=== PATIENT | male | born 1995 | race Caucasian/White ===

== ENCOUNTER 2024-02-08 09:12 | Emergency (ER) | payer SELFPAY ==
[2024-02-08 09:29] VITALS: BP 150/100
[2024-02-08 10:07] LABS: % Basophils 0.4 % (0-2); % Eosinophils 1.2 % (0-6); % Immature Granulocytes 0.6 % (0-0.5); % Neutrophils 78.8 % (42.2-75.2); Absolute Eosinophils 0.1 10^3/uL (0-0.7); Absolute Immature Granulocytes 0.1 10^3/uL (0-0.05); Absolute Lymphocytes 1.4 10^3/uL (1.2-3.4); Absolute Monocytes 0.4 10^3/uL (0.1-0.6); Absolute Neutrophils 7.4 10^3/uL (1.4-6.5); Hematocrit 47.5 % (39.0-52.0); Hemoglobin 16.2 g/dL (13.0-18.0); Mean Corp Hgb Conc. 34.1 g/dL (33.0-37.0); Mean Corpuscular Hgb 30.2 pg (27.0-31.0); Mean Corpuscular Volume 88.6 fL (80.0-94.0); Mean Platelet Volume 10.4 fL (7.4-10.4); Nucleated Red Blood Cells % 0 % (-); Platelet Count 186 10^3/uL (130-400); Red Blood Cell Count 5.36 10^6/uL (4.70-6.10); Red Cell Dist. Width 11.4 % (11.5-14.5); White Blood Cell Count 9.4 10^3/uL (4.8-10.8)
[2024-02-08 10:21] LABS: ALT (SGPT) 59 U/L (0-50); AST (SGOT) 39 U/L (17-59); Albumin 5.1 g/dl (3.5-5.0); Alkaline Phosphatase 55 U/L (38-126); Blood Urea Nitrogen 17 mg/dl (9-20); Calcium 9.7 mg/dl (8.4-10.2); Carbon Dioxide 25 mmol/L (22-30); Chloride 106 mmol/L (98-107); Glucose 116 mg/dl (70-99); Potassium 4.8 mmol/L (3.5-5.1); Sodium 143 mmol/L (135-145); Total Bilirubin 0.9 mg/dl (0.2-1.3); Total Protein 8.1 g/dl (6.3-8.2); eGFR > 60.00
[2024-02-08 11:08] VITALS: BP 149/92
--- NOTE | 2024-02-08 11:16 | ED.GENMED ---
History of Present Illness
General
Chief Complaint: Dizziness
Source: patient and family (Mother)
Exam Limitations: none
Time Seen by Provider: 02/08/24 11:04
Nursing documentation reviewed up to this point in time: agreed with
History of Present Illness
History of Present Illness:
28-year-old male presents emergency room complaining of photosensitivity, dizziness and weakness since Monday. He had a headache yesterday. He thinks it is related to a rabies vaccine he got on Monday.
Past History
Past History
ED Past Medical History: None
ED Past Surgical History: Other (Rhinoplasty)
Social History
Tobacco: Non-smoker
Alcohol: None
Drug: None
Living: with family
Employment: Student
Review of Systems
Review of Systems
Allergies reviewed?: Yes
All Other Systems: Not applicable
Constitutional: Reports no symptoms
EENT: Reports no symptoms
Respiratory: Reports no symptoms
Cardiac: Reports no symptoms
ABD/GI: Reports no symptoms
: Reports no symptoms
Musculoskeletal: Reports no symptoms
Skin: Reports no symptoms
Neurological: Reports dizzy and weakness
Endocrine: Reports no symptoms
Hematologic/Lymphatic: Reports no symptoms
Psychiatric: Reports no symptoms
Phy Exam
Physical Exam
Physical Exam:
Physical Exam
General: no apparent distress, not acutely ill
Neck: supple. no meningeal signs. normal posterior pharynx
Heart: s1/s2 regular rate and rhythm, no murmur. equal radial
pulses.
HEENT: Pupils equal round reactive to light, EOMI
Lungs: no acute respiratory distress. clear bilaterally
Abdomen: normal bowel sounds. not tender. no CVAT
Neuro: alert and oriented. no focal neurological deficits cranial nerves II through XII intact
Skin: no rash
Psychiatric: well kept. interactive and cooperative
Extremities: no edema. no calf tenderness. negative homans. good distal pulses
Course
Orders/Labs/Results
Orders:
Orders
02/08/24 09:47
CMP [Comprehensive Metabolic Panel] Urgent
Complete Blood Count/With Diff Urgent
02/08/24 11:14
IV Insert/Care/Rem.- Treatment PRN
0.9% Sodium Chloride 1000 ml [Nss] 1,000 ml IV BOLUS
Physical Therapy Consult [Pt Eval And Treat] Urgent
Treatment: vestibular eval and treat
Activity Level: Ambulate
02/08/24 12:25
Diphenhydramine [Benadryl] 25 mg IV NOW STA
Metoclopramide [Reglan] 10 mg IV NOW STA
02/08/24 13:41
Electrocardiogram (*1) Urgent
Reason for Study: Vertigo / Dizzy
EKG- Treatment ONCE
Abnormal Lab Results
02/08/24
09:47
RDW 11.4 L %
(11.5-14.5)
Abs Immat Gran (auto) 0.1 H 10^3/uL
(0-0.05)
Absolute Neuts (auto) 7.4 H 10^3/uL
(1.4-6.5)
Immature Gran % 0.6 H %
(0-0.5)
Neutrophils % 78.8 H %
(42.2-75.2)
Lymphocytes % 15.0 L %
(20.5-51.1)
Glucose 116 H mg/dl
(70-99)
ALT 59 H U/L
(0-50)
Albumin 5.1 H g/dl
(3.5-5.0)
02/08/24 09:47
02/08/24 09:47
Vital Signs
Initial and Last Documented VS:
Initial Vital Signs
Temp Pulse Resp BP Pulse Ox
97.6 F 62 18 150/100 98
02/08/24 09:29 02/08/24 09:29 02/08/24 09:29 02/08/24 09:29 02/08/24 09:29
Last Documented Vital Signs
Temp Pulse Resp BP Pulse Ox
97.6 F 62 18 148/75 96
02/08/24 09:29 02/08/24 09:29 02/08/24 09:29 02/08/24 13:00 02/08/24 13:15
MDM/Problems Addressed
Differential Diagnosis Includes:
Vertigo, dysrhythmia, electrolyte abnormality
MDM/Problems Addressed:
28-year-old male with dizziness, headache, likely migraine. No neurologic deficits. Ambulates difficulty. Improved after IV Benadryl and Reglan
*Pulse Oximetry
Patient hypoxic: no
*EKG
Interpreted by ED Provider?: Yes
EKG Intrepretation Date: 02/08/24
EKG Intrepretation Time: 13:49
Interpretation: abnormal
Comparison EKG: no comparison EKG present
Heart Rate: 57
Rate: bradycardiac
Rhythm: sinus
[place]: normal axis
Interval: normal interval
QRS Pattern: left vent hypertrophy
Ischemia: no ischemia
*Collar Setter Overlock Interpretation
Rate: bradycardiac
Interpretation: abnormal
Heart Rate: 57
Rhythm: sinus
*Critical Care Note
Total Time (30-74mins, 75-104mins- exclusive of procedures): Not Applicable
Patient Management
Social determinants of health affecting care: Living situation and Strong social support
Escalation/DeEscalation of care consider admission/obs:
Admit not indicated
ED Attending Note
-
Portions of this chart may have been created with voice recognition software.� Occasional wrong word or��sound alike� substitutions may have occurred due to the inherent limitations of voice recognition software.
Discharge Plan
Departure
Patient Disposition: Home (Routine Discharge)
Date of Disposition: 02/08/24
Time of Disposition: 13:35
Patient with high blood pressure during this ER visit?: Yes
Condition: Good
Discharge Problem:
Dizziness
Instructions: Dizziness, BLOOD PRESSURE
Prescriptions:
New
metoclopramide HCl [Reglan] 10 mg tablet
10 mg PO Q8HPRN PRN (Reason: nausea and vomiting, headache) Qty: 9 0RF
Interventions
Interventions:
*Risk Screen - Suicide Last Done: 02/08/24 09:29
*General Assessment Last Done: 02/08/24 09:29
*Neglect/Abuse Screening Last Done: 02/08/24 10:58
ED- Fall Risk Assessment Last Done: 02/08/24 10:58
*ED COVID-19 Vaccine History Last Done: 02/08/24 09:29
ED- Neurological Assessment Last Done: 02/08/24 10:58
ED Swallowing Screen Last Done: 02/08/24 10:58
Discharge Date and Time
Print Language: FRISIAN
[2024-02-08] MEDS: NSS 1000 IV (11:33)
[2024-02-08 11:36] VITALS: BMI 32.9
[2024-02-08] MEDS: REGLAN 10 MG IV (12:40)
[2024-02-08] MEDS: BENADRYL 25 MG IV (12:40)
[2024-02-08 13:00] VITALS: BP 148/75
== END 2024-02-08 13:59 | disposition home or self-care (01) ==
LOC: EMR 09:12
PROVIDERS: Emergency Medicine; EMERGENCY PHYSICIAN Emergency Medicine
DX: R42 Dizziness and giddiness (principal); R51.9 Headache, unspecified; R03.0 Elevated blood-pressure reading, without diagnosis of hypertension
CPT/HCPCS: 96374; 96375; 96361; 99284; 80053; 85025; 93005